=== PATIENT | female | born 1940 | race Two or more races ===

== ENCOUNTER → 2016-09-08 | Outpatient (CLI) | payer MEDICARE, OTHER ==
--- NOTE | 2016-09-08 21:01 | HKNOTE ---
DATE OF SERVICE: 09/08/2016 MAIN COMPLAINT: 1. Pain in the left hip. 2. Pain and instability of the right knee. HISTORY OF MAIN COMPLAINT: The patient is a 75-year-old female who saw me as a patient 6 years ago. I gave her a single cortisone injection into the knee, and she has never had a problem with knee s stephen then. The pain in the right knee as well as the pain in the left hip has been present now for one or two m onths. The knee problem is worse than the hip problem. The patient took a fall in a bathroom 5 weeks ago, and landed on her buttocks. She states the entir e buttocks were black and blue. She has a long history of problems with her lower back, and this wa s aggravated by the fall. The patient has a history of left-sided sciatica. Dr. Mack explored the sciatic nerve on the left side several years ago, "find where the nerve was pinched". He was no t able to find a pinch, and her condition was not improved at all. The patient's knee pain and hip pain are aggravated by walking, weightbearing and stair climbing. She does get rest pain and night pain. She has been taking Tylenol, tramadol and Celebrex for the p ain. She has numbness and tingling in the left leg from time to time. On a level surface, she used to be able to walk "a few miles", but currently she is limited by the pain. Note that the hip pain comes and goes. Last week, it was so severe, she was "in a wheelchair all week." She limps some o f the time. She does not have . Her starch cooker, Dr. Madai Pabon, who is also her primary care doctor, gave her a cortisone inj ection into the left hip 3 weeks ago. This gave her relief of her hip pain for about 4 days. She a lso has had a cortisone injection into the right knee in the past. PRESENT COMPLAINTS: Knee: The knee pain is worse than the hip pain. The knee occasionally "swells like a balloon". The knee is unstable and occasionally locks. PAST ORTHOPEDIC HISTORY AND PREVIOUS ORTHOPEDIC OPERATIONS: 1. The patient had operative arthroscopy on the right knee by Dr. Mack in 1991. 2. She has had cortisone injections in the past. ALCOHOL INTAKE: None. OTHER JOINT PROBLEMS: None. BLOOD TESTS FOR ARTHRITIS: None. PRIOR INJURIES TO HIPS OR KNEES: The patient fell on her buttocks as noted above, otherwise none. WORK STATUS: The patient works in real estate. PAST MEDICAL HISTORY: Negative. PAST SURGICAL HISTORY: 1. Shoulder surgery for a torn tendon. 2. Should surgery for a rotator cuff tear. 3. Arthroscopic surgery for a torn meniscus, 1991. ALLERGIES: CODEINE, PENICILLIN, "ALL NARCOTIC MEDICATIONS". MEDICATIONS: 1. Tylenol. 2. Motrin. 3. Tramadol. 4. Vitamin B12. 5. [place] 3. 6. Vitamin D3. 7. Other food supplements. FAMILY HISTORY: Noncontributory. SYSTEMS REVIEW: Prone to dizzy spells, varicose veins. The patient has passed a kidney stone. Oth erwise, negative. HABITS: The patient does not smoke or drink alcoholic beverages. ELECTROTYPE MOLDER: Dr. Madai Pabon, [address], [address], [place] [address]. PHYSICAL EXAMINATION: GENERAL: The patient is a fit-looking, youthful, 75-year-old female. She comes in with her . VITAL SIGNS: Height 5 feet 4 inches, weight 151 pounds, blood pressure 115/65, temperature 98.9. GAIT: The patient's gait is minimally antalgic. LEFT HIP: On flexion 105, external rotation 40, internal rotation 5, abduction 30, adduction 20. M arked pain in the left groin at limits of motion. RIGHT HIP: Full range of motion without pain. No tenderness anywhere around either hip. RIGHT KNEE: Arthroscopic portals of previous surgery. 1+ effusion. The right knee shows normal al ignment. Active and passive extension is 0 degrees. Active and passive flexion is 135 degrees. The medial and lateral collateral ligaments and cruciate ligaments are intact. Leida test is negative . Arthroscopic portals of previous surgery. There is 1+ effusion. There is no crepitus or cysts. The patella tracks normally. Tender over the medial joint line. The Q angle is normal. IMAGING: Plain x-rays of the patient's pelvis and hips obtained recently were reviewed. The left h ip shows marked narrowing of the inferomedial joint space, numerous small interosseous cysts in the femoral head, just under the superior articular cartilage. The right hip shows approximately 30% lo ss of joint space. Plain x-rays of the right knee obtained recently were reviewed. The medial compartment of the knee shows fairly marked narrowing without [id number] contact, without osteophytes, without subchondral sclerosis. An MRI scan of the left hip obtained on 08/09/2016, are reported by Dr. Bradford as showing "Acute on chronic partial tearing of the origins, with surrounding soft tissue edema. Moderate arthriti s of the hip joint. 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 No evidence f or femoral fracture or AVN." An MRI scan of the lumbar spine obtained on 07/15/2016, is reported by Dr. Hodge as showing "Degene rative disk and degenerative facet disease of L3-L4 through L5-S1 levels, bilateral neural foraminal stenosis and mild bilateral lateral restenosis at L4-L5. Mild bilateral neural foraminal stenosis at L5-S1." DIAGNOSES: 1. Degenerative osteoarthritis of the left hip. 2. Degenerative osteoarthritis of the right knee. 3. Probable internal derangement of the right knee. 4. ALLERGIC TO CODEINE, PENICILLIN AND "ALL NARCOTIC MEDICATIONS". MANAGEMENT: Under sterile conditions, the left hip was injected with 8 mL of 2% lidocaine. This ga ve her almost complete relief of the pain in her left hip and groin, even when the hip is forced to the limits of motion. The injection was therefore followed with 80 mg of Kenalog into the hip joint . The patient is advised that she probably has an internal derangement of the right knee, which will r equire an arthroscopic operation. She also has some arthritis in the right knee, so she could not e xpect all of her pain to be resolved by any arthroscopic procedure. She is also advised that she will need to have a left hip replacement sometime in the near future. Currently, her right knee is her more severe problem, and she would like to "have that taken care of first." Hip replacement surgery was not discussed with her today. Once the MRI report on the right knee is available, she will be called with the results and further treatment will depend upon the findings. Note, she left the office free of pain in her left hip. Dictated By: DIANNA STRONG/RAUL Conf#: [id number] [facility]#: [id number]
== END | disposition home or self-care (01) ==
LOC: HKI 14:58
DX: M16.12 Unilateral primary osteoarthritis, left hip (principal); M17.11 Unilateral primary osteoarthritis, right knee; Z96.651 Presence of right artificial knee joint; Z88.0 Allergy status to penicillin; Z88.2 Allergy status to sulfonamides